=== PATIENT | female | born 1990 | race American Indian/Alaskan Native ===

== ENCOUNTER 2018-01-11 10:19 | Emergency (ER) | payer SELFPAY ==
[2018-01-11 10:25] VITALS: BP 121/82
[2018-01-11 10:58] LABS: Bacteria,Urine 1+ /HPF (Negative); Bilirubin,Urine NEG (Negative); Blood,Urine MOD (Negative); Color,Urine Yellow (Yellow); Mucus,Urine 2+ /HPF
[2018-01-11 10:59] LABS: HCG Qualitative,Urine Negative (Negative)
--- NOTE | 2018-01-11 11:15 | Emergency Department Report ---
ED Female HPI - General Chief complaint: Abdominal Pain Stated complaint: ABDOMINAL PAIN Time Seen by Provider: 01/11/18 10:32 Source: patient Mode of arrival: Ambulatory Limitations: No Limitations - History of Present Illness Initial comments: This is a 27-year-old female nontoxic, well nourished in appearance, no acute signs of distress presents to the ED with c/o of foreign body in vagina. Patient stated that she put a tampon in last night and forgot to take it out and there is no stranding. Patient stated that she has sensation of foreign body. Patient also stated that due to that she been having pelvic pain but only in the ED denies any pelvic pain. She denies any fever, chills, nausea, vomiting, chest pain shortness of breath. Patient denies any vaginal discharge. Patient states she is currently on her menstrual cycle. Menstrual cycle started on 01/10/2018. Patient denies any allergies or significant past medical history. MD Complaint: other (foregin body in vagina) -: Last night Radiation: non-radiating Severity scale (0 -10): 0 Improves with: none Worsens with: none Are you Now?: No Last Menstrual Period: 01/10/18 EDC: 10/17/18 Associated Symptoms: denies: vaginal discharge, vaginal bleeding, abdominal pain , nausea/vomiting, fever/chills, headaches, loss of appetite, dysuria, hematuria , rash, seizure, shortness of breath, syncope, weakness - Related Data Previous Rx's Medication Instructions Recorded Last Taken Type oxyCODONE /ACETAMINOPHEN [Percocet 1 tab PO Q6H PRN #10 tablet 12/31/15 Unknown Rx 5/325 mg] Ibuprofen [Motrin] 600 mg PO Q8H PRN #30 tablet 01/11/18 Unknown Rx Allergies Allergy/AdvReac Type Severity Reaction Status Date / Time No Known Allergies Allergy Verified 11/11/14 15:18 ED Review of Systems ROS: Stated complaint: ABDOMINAL PAIN Other details as noted in HPI Constitutional: denies: chills, fever Eyes: denies: eye pain, eye discharge, vision change ENT: denies: ear pain, throat pain Respiratory: denies: cough, shortness of breath, wheezing Cardiovascular: denies: chest pain, palpitations Endocrine: no symptoms reported Gastrointestinal: denies: abdominal pain, nausea, diarrhea Genitourinary: denies: urgency, dysuria, discharge Musculoskeletal: denies: back pain, joint swelling, arthralgia Skin: denies: rash, lesions Neurological: denies: headache, weakness, paresthesias Psychiatric: denies: anxiety, depression Hematological/Lymphatic: denies: easy bleeding, easy bruising ED Past Medical Hx - Past Medical History Previous Medical History?: Yes Hx Hypertension: No Hx Congestive Heart Failure: No Hx Diabetes: No Hx Deep Vein Thrombosis: No Hx Renal Disease: No Hx Sickle Cell Disease: No Hx Seizures: No Hx Asthma: No Hx COPD: No Hx HIV: No - Surgical History Past Surgical History?: Yes Additional Surgical History: Tumor removed from lower abdomen--2010. TUMOR (SARCOMA) REMOVED FROM RIGHT ABD--11-03-14 - Social History Smoking Status: Never Smoker Substance Use Type: Alcohol - Medications Home Medications: Home Medications Medication Instructions Recorded Confirmed Last Taken Type oxyCODONE /ACETAMINOPHEN [Percocet 1 tab PO Q6H PRN #10 tablet 12/31/15 Unknown Rx 5/325 mg] Ibuprofen [Motrin] 600 mg PO Q8H PRN #30 tablet 01/11/18 Unknown Rx ED Physical Exam - General Limitations: No Limitations General appearance: alert, in no apparent distress - Head Head exam: Present: atraumatic, normocephalic - Eye Eye exam: Present: normal appearance Pupils: Present: normal accommodation - ENT ENT exam: Present: normal exam, mucous membranes moist - Neck Neck exam: Present: normal inspection, full ROM - Respiratory Respiratory exam: Present: normal lung sounds bilaterally. Absent: respiratory distress, wheezes, rales, rhonchi, stridor, chest wall tenderness, accessory muscle use, decreased breath sounds, prolonged expiratory - Cardiovascular Cardiovascular Exam: Present: regular rate, normal rhythm, normal heart sounds. Absent: irregular rhythm, systolic murmur, diastolic murmur, rubs, gallop - GI/Abdominal GI/Abdominal exam: Present: soft, normal bowel sounds. Absent: distended, tenderness, guarding, rebound, rigid, diminished bowel sounds - Expanded GI/Abdominal Exam Expanded GI/Abdominal exam: Absent: psoas sign, obturator sign, heel tap sign, Le's sign, Rovsing's sign, tenderness at [place]'s Point, ascites - Rectal Rectal exam: Present: deferred - External exam: Present: normal external exam, other (advertising teacher Tiffanie RN present during exam ). Absent: erythema, swelling, lesions, lacerations, ecchymosis, bleeding Speculum exam: Present: normal speculum exam, vaginal bleeding, other ( advertising teacher Tiffanie RN present during exam ). Absent: erythema, vaginal discharge , cervical discharge, foreign body, tissue, laceration Bi-manual exam: Present: normal bi-manual exam, other (advertising teacher Tiffanie RN present during exam ). Absent: cervical motion tendernes, adnexal tenderness, adnexal mass, uterine enlargement, uterine tenderness - Extremities Exam Extremities exam: Present: normal inspection, full ROM, normal capillary refill - Back Exam Back exam: Present: normal inspection, full ROM - Neurological Exam Neurological exam: Present: alert, oriented X3, normal gait - Psychiatric Psychiatric exam: Present: normal affect, normal mood - Skin Skin exam: Present: warm, dry, intact, normal color. Absent: rash ED Course Vital Signs 01/11/18 10:22 Temperature 98.7 F Pulse Rate 76 Respiratory 20 Rate Blood Pressure 121/82 O2 Sat by Pulse 100 Oximetry - Reevaluation(s) Reevaluation #1: 01/11/18 11:14 Patient is speaking in full sentences with no signs of distress noted. ED Medical Decision Making - Medical Decision Making This is a 27-year-old female that presents with r/o foreign body. Patient is stable and was examined by me. Services Account Manager Tiffanie RN present during exam. Upon speculum exam there was no foreign body noted. There was menstrual vaginal bleeding. No vaginal discharge or foul odor. Patient stated that she believes it is an patient requested an demented and x-ray. So a x-ray of pelvis has been obtained and dictated by the radiologist within normal limits. She is notified of the x-ray results with no question about the patient. Patient is discharged with Motrin. Patient currently denies any abdominal pelvic pain. Patient was referred instructed to Follow-up with a assistant womens volleyball coach doctor in 3-5 days or if symptoms worsen and continue return to emergency room as soon as possible. At time of discharge, the patient does not seem toxic or ill in appearance. No acute signs of distress noted. Patient agrees to discharge treatment plan of care. No further questions noted by the patient. Critical care attestation.: If time is entered above; I have spent that time in minutes in the direct care of this critically ill patient, excluding procedure time. ED Disposition Clinical Impression: Sensation of foreign body Disposition: DC-01 TO HOME OR SELFCARE Is pt being admited?: No Does the pt Need Aspirin: No Condition: Stable Additional Instructions: Follow-up with a assistant womens volleyball coach doctor in 3-5 days or if symptoms worsen and continue return to emergency room as soon as possible. Prescriptions: Ibuprofen [Motrin] 600 mg PO Q8H PRN #30 tablet PRN Reason: Pain Referrals: PRIMARY CARE, [Primary Care Provider] - 3-5 Days LEYLA BAL MD [Staff Physician] - 3-5 Days [facility] [Outside] - [facility] - [facility]-5 Days Forms: Work/School Release Form(ED)
--- NOTE | 2018-01-11 12:08 | XRay Report ---
AP PELVIS: HISTORY: pain. AP view of the pelvis shows normal pelvic contour and soft tissues. The hips are symmetric and within normal limits as are the sacroiliac joints. A button overlies the left side of the pelvis which is presumably external to the patient. IMPRESSION: Normal pelvis.
== END 2018-01-11 12:35 | disposition home or self-care (01) ==
LOC: ED 10:19
DX: T19.2XXA Foreign body in vulva and vagina, initial encounter (principal); X58.XXXA Exposure to other specified factors, initial encounter; Y93.89 Activity, other specified; Y99.8 Other external cause status; Y92.89 Other specified places as the place of occurrence of the external cause
CPT/HCPCS: 72170; 81001; 81025

== ENCOUNTER 2018-06-01 03:58 | Emergency (ER) | payer MEDICARE ==
[2018-06-01] MEDS ORDERED: NACL 0.9% 1000 ML 1,000 ML IV ONE (04:52)
[2018-06-01 05:23] LABS: Eosinophils # (Auto) 0.1 K/mm3 (0.0-0.4); Eosinophils % (Auto) 2.3 % (0.0-4.3); Hematocrit 35.2 % (30.3-42.9); Hemoglobin 11.6 gm/dl (10.1-14.3); Lymphocytes # (Auto) 0.9 K/mm3 (1.2-5.4); Lymphocytes % (Auto) 21.4 % (13.4-35.0); Mean Corpuscular HGB Conc 33 % (30-34); Mean Corpuscular Hemoglobin 29 pg (28-32); Mean Corpuscular Volume 88 fl (79-97); Monocytes # (Auto) 0.2 K/mm3 (0.0-0.8); Monocytes % (Auto) 5.5 % (0.0-7.3); Platelet Count 191 K/mm3 (140-440); Red Blood Count 3.99 M/mm3 (3.65-5.03); Red Cell Distribution Width 15.3 % (13.2-15.2)
[2018-06-01 05:31] LABS: Alanine Aminotransferase 6 units/L (7-56); Albumin 4.2 g/dL (3.9-5); BUN/Creatinine Ratio 22; Blood Urea Nitrogen 11 mg/dL (7-17); Calcium 8.8 mg/dL (8.4-10.2); Hemolysis Index 7
[2018-06-01 06:06] LABS: Bilirubin,Urine NEG (Negative); Blood,Urine MOD (Negative); Color,Urine Yellow (Yellow); Mucus,Urine 2+ /HPF; Protein,Urine <15 mg/dL mg/dL (Negative); Urobilinogen,Urine < 2.0 mg/dL (<2.0)
[2018-06-01 06:07] LABS: Lipase 24 units/L (13-60)
--- NOTE | 2018-06-01 06:36 | Emergency Department Report ---
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 She is not known to have a tumor recurrence. She is concerned that she sat the return of her neoplasm. She complains of discomfort in the right lower aspect of her abdomen and also her lower back. She reports chronic constipation with hard stool. She's had no fever or chills. She has not been vomiting. The abdominal pain is dull diffuse and intermittent. MD Complaint: abdominal pain -: Gradual Location: diffuse Radiation: none Migration to: no migration Quality: aching Consistency: intermittent, now resolved Improves With: nothing Worsens With: nothing Context: other (history of fibrosarcoma) Associated Symptoms: denies other symptoms, nausea, constipation - Related Data Previous Rx's Medication Instructions Recorded Last Taken Type oxyCODONE /ACETAMINOPHEN [Percocet 1 tab PO Q6H PRN #10 tablet 12/31/15 Unknown Rx 5/325 mg] Ibuprofen [Motrin] 600 mg PO Q8H PRN #30 tablet 01/11/18 Unknown Rx Docusate Sodium [Colace Clear] 50 mg PO BID #30 capsule 06/01/18 Unknown Rx traMADol [Ultram 50 MG tab] 50 mg PO Q6HR PRN #14 tablet 06/01/18 Unknown Rx Allergies Allergy/AdvReac Type Severity Reaction Status Date / Time No Known Allergies Allergy Verified 11/11/14 15:18 ED Review of Systems ROS: Stated complaint: ABD/BACK PAIN Other details as noted in HPI Constitutional: denies: chills, fever Eyes: denies: eye pain, eye discharge, vision change ENT: denies: ear pain, throat pain Respiratory: denies: cough, shortness of breath, wheezing Cardiovascular: denies: chest pain, palpitations Endocrine: no symptoms reported Gastrointestinal: as per HPI, abdominal pain, nausea, constipation. denies: diarrhea Genitourinary: denies: urgency, dysuria, discharge Musculoskeletal: denies: back pain, joint swelling, arthralgia Skin: denies: rash, lesions Neurological: denies: headache, weakness, paresthesias Psychiatric: denies: anxiety, depression Hematological/Lymphatic: denies: easy bleeding, easy bruising ED Past Medical Hx - Past Medical History Previous Medical History?: No Hx Hypertension: No Hx Congestive Heart Failure: No Hx Diabetes: No Hx Deep Vein Thrombosis: No Hx Renal Disease: No Hx Sickle Cell Disease: No Hx Seizures: No Hx Asthma: No Hx COPD: No Hx HIV: No - Surgical History Additional Surgical History: Tumor removed from lower abdomen--2010. TUMOR (SARCOMA) REMOVED FROM RIGHT ABD--11-03-14. Multiple Abdominal Surgeries - Social History Smoking Status: Never Smoker Substance Use Type: None - Medications Home Medications: Home Medications Medication Instructions Recorded Confirmed Last Taken Type oxyCODONE /ACETAMINOPHEN [Percocet 1 tab PO Q6H PRN #10 tablet 12/31/15 Unknown Rx 5/325 mg] Ibuprofen [Motrin] 600 mg PO Q8H PRN #30 tablet 01/11/18 Unknown Rx Docusate Sodium [Colace Clear] 50 mg PO BID #30 capsule 06/01/18 Unknown Rx traMADol [Ultram 50 MG tab] 50 mg PO Q6HR PRN #14 tablet 06/01/18 Unknown Rx ED Physical Exam - General Limitations: No Limitations General appearance: alert, in no apparent distress - Head Head exam: Present: atraumatic, normocephalic - Eye Eye exam: Present: normal appearance. Absent: scleral icterus - ENT ENT exam: Present: mucous membranes moist - Neck Neck exam: Present: normal inspection. Absent: tenderness, meningismus - Respiratory Respiratory exam: Present: normal lung sounds bilaterally. Absent: respiratory distress - Cardiovascular Cardiovascular Exam: Present: regular rate, normal rhythm. Absent: systolic murmur, diastolic murmur, rubs, gallop - GI/Abdominal GI/Abdominal exam: Present: soft, distended (may be slightly), normal bowel sounds. Absent: tenderness, guarding, rebound, rigid, organomegaly, mass, bruit , pulsatile mass, hernia - Extremities Exam Extremities exam: Present: normal inspection - Back Exam Back exam: Present: normal inspection - Neurological Exam Neurological exam: Present: alert, oriented X3, CN II-XII intact. Absent: motor sensory deficit - Psychiatric Psychiatric exam: Present: normal affect, normal mood - Skin Skin exam: Present: warm, dry, intact, normal color. Absent: rash ED Course Vital Signs 06/01/18 06/01/18 06/01/18 03:55 04:48 06:01 Temperature 98.2 F 98.2 F Pulse Rate 63 64 Respiratory 18 18 Rate Blood Pressure 121/65 121/65 110/51 Blood Pressure [Right] O2 Sat by Pulse 100 100 100 Oximetry 06/01/18 06/01/18 06/01/18 06:12 06:31 07:00 Temperature 98.4 F Pulse Rate 70 Respiratory 14 Rate Blood Pressure 110/51 119/77 Blood Pressure 110/51 [Right] O2 Sat by Pulse 100 98 98 Oximetry - Reevaluation(s) Reevaluation #1: The patient is resting comfortably. She has no complaints of pain. I went over the CT results. I emphasized the importance of her following up with her [facility]. 06/01/18 11:43 ED Medical Decision Making - Lab Data Result diagrams: 06/01/18 04:55 06/01/18 04:55 Laboratory Results - last 24 hr 06/01/18 06/01/18 06/01/18 04:55 04:55 04:55 WBC 4.4 L RBC 3.99 Hgb 11.6 Hct 35.2 MCV 88 MCH 29 MCHC 33 RDW 15.3 H Plt Count 191 Lymph % (Auto) 21.4 [place] % (Auto) 5.5 Eos % (Auto) 2.3 Baso % (Auto) 1.0 Lymph # 0.9 L [place] # 0.2 Eos # 0.1 Baso # 0.0 Seg Neutrophils % 69.8 Seg Neutrophils # 3.0 Sodium 137 Potassium 4.0 Chloride 101.0 Carbon Dioxide 24 Anion Gap 16 BUN 11 Creatinine 0.5 L Estimated GFR > 60 BUN/Creatinine Ratio 22 Glucose 96 Calcium 8.8 Total Bilirubin 0.20 AST 13 ALT 6 L Alkaline Phosphatase 77 Total Protein 6.6 Albumin 4.2 Albumin/Globulin Ratio 1.8 Lipase 24 HCG, Qual Negative Urine Color Urine Turbidity Urine pH Ur Specific [place] Urine Protein Urine Glucose (UA) Urine Ketones Urine Blood Urine Nitrite Urine Bilirubin Urine Urobilinogen Ur Leukocyte Esterase Urine WBC (Auto) Urine RBC (Auto) U Epithel Cells (Auto) Urine Mucus 06/01/18 05:18 WBC RBC Hgb Hct MCV MCH MCHC RDW Plt Count Lymph % (Auto) [place] % (Auto) Eos % (Auto) Baso % (Auto) Lymph # [place] # Eos # Baso # Seg Neutrophils % Seg Neutrophils # Sodium Potassium Chloride Carbon Dioxide Anion Gap BUN Creatinine Estimated GFR BUN/Creatinine Ratio Glucose Calcium Total Bilirubin AST ALT Alkaline Phosphatase Total Protein Albumin Albumin/Globulin Ratio Lipase HCG, Qual Urine Color Yellow Urine Turbidity Clear Urine pH 5.0 Ur Specific [place] 1.027 Urine Protein <15 mg/dl Urine Glucose (UA) Neg Urine Ketones Neg Urine Blood Mod Urine Nitrite Neg Urine Bilirubin Neg Urine Urobilinogen < 2.0 Ur Leukocyte Esterase Neg Urine WBC (Auto) 3.0 Urine RBC (Auto) 2.0 U Epithel Cells (Auto) 3.0 Urine Mucus 2+ - Radiology Data Radiology results: report reviewed interpreted by me: Intestines: Oral contrast is present throughout the mid to distal small bowel and colon. There is no evidence for obstruction, mass or focal inflammation. There is mild fecal retention in the distal colon. Appendix: Normal. Pelvic viscera: Within normal limits. Endometrial thickening and complexity has resolved since the previous exam. No adnexal abnormality is detected. Ascites: Trace pelvic ascites which is likely physiologic. Adenopathy: None. Musculoskeletal: Within normal limits. The right inguinal mass has been surgically resected since the previous examination. No obvious residual mass. IMPRESSION: No acute inflammatory process is identified in the abdomen or pelvis. Trace right pleural effusion. Transcribed By: TTR Dictated By: HUNG ODOM JR, MD Electronically Authenticated By: HUNG ODOM JR, MD Signed Date/Time: 06/01/18 1001 Critical care attestation.: If time is entered above; I have spent that time in minutes in the direct care of this critically ill patient, excluding procedure time. ED Disposition Clinical Impression: Abdominal pain Qualifiers: Abdominal location: unspecified location Qualified Code(s): R10.9 - Unspecified abdominal pain Constipation Qualifiers: Constipation type: unspecified constipation type Qualified Code(s): K59.00 - Constipation, unspecified Disposition: TO HOME OR SELFCARE Is pt being admited?: No Does the pt Need Aspirin: No Condition: Stable Instructions: Abdominal Pain (ED), Constipation (ED), High Fiber Diet (ED) Additional Instructions: I'm going to prescribe a stool softener and something for pain. It is important for you to follow up with [facility]. I'm going to give you a local primary care clinics information as well. Return to the emergency department any acute change or problem. Prescriptions: Docusate Sodium [Colace Clear] 50 mg PO BID #30 capsule traMADol [Ultram 50 MG tab] 50 mg PO Q6HR PRN #14 tablet PRN Reason: Pain Referrals: PRIMARY CARE, [Primary Care Provider] - 3-5 Days Time of Disposition: 11:47
[2018-06-01] MEDS ORDERED: ZOFRAN IV ONE (06:37)
[2018-06-01] MEDS ORDERED: MORPHINE IV ONE ×2 (06:37→09:59)
--- NOTE | 2018-06-01 10:08 | Cat Scan Report ---
CT ABDOMEN PELVIS WITH CONTRAST: HISTORY: Abdominal, question obstruction. COMPARISON: 12/31/15. TECHNIQUE: Helical CT in 1.25mm intervals following IV contrast. Sagittal and coronal reconstructions. FINDINGS: Lung bases: Normal heart size. The lung bases are well-aerated. Trace right pleural effusion. Liver: Normal. Biliary system: Normal. Pancreas: Normal. Spleen: Normal. Kidneys/ureters/bladder: Normal. Adrenal glands: Normal. Aorta: Normal. Intestines: Oral contrast is present throughout the mid to distal small bowel and colon. There is no evidence for obstruction, mass or focal inflammation. There is mild fecal retention in the distal colon. Appendix: Normal. Pelvic viscera: Within normal limits. Endometrial thickening and complexity has resolved since the previous exam. No adnexal abnormality is detected. Ascites: Trace pelvic ascites which is likely physiologic. Adenopathy: None. Musculoskeletal: Within normal limits. The right inguinal mass has been surgically resected since the previous examination. No obvious residual mass. IMPRESSION: No acute inflammatory process is identified in the abdomen or pelvis. Trace right pleural effusion.
[2018-06-01] MEDS ORDERED: BENADRYL IV ONE (10:46)
[2018-06-01 13:14] VITALS: BP 121/78
== END 2018-06-01 13:14 | disposition home or self-care (01) ==
LOC: ED 03:58
DX: K29.00 Acute gastritis without bleeding (principal)
CPT/HCPCS: 36415; 74177; 80053; 81001; 83690; 84703; 85025; 96374; 96375; 96376; 99284; J1200; J2270; J2405; J7030; Q9967